=== PATIENT | female | born 1990 ===

== ENCOUNTER 2016-11-12 18:25 | Emergency (ER) | payer OTHER ==
[~2016-11-12] VITALS: Ht 154.9 cm; Wt 50.2 kg
[2016-11-12 18:46] VITALS: TEMP 36.8; Ht 154.9 cm; Wt 50.2 kg
--- NOTE | 2016-11-12 19:20 | EMERGENCY ROOM VISIT NOTE ---
History First contact with patient: 18:50 Chief Complaint: SORETHROAT Stated Complaint: SORE THROAT History of Present Illness The patient is a 26 year old female who presents to the Emergency Room via private vehicle accompanied by female with complaints of "sore throat". The patient states that Friday night, she developed throat pain, and noting that it felt like her throat was swollen. She's been taking NyQuil and DayQuil without relief. There is associated cough, with some mucus production. She denies any sinus drainage or pressure. She denies any antibiotics recently. She denies any fevers, trouble breathing, trouble swallowing, headache, body aches. She denies chance of . Review of Systems A complete 6-point Review of Systems was discussed with the patient, with pertinent positives and negatives listed in the History of Present Illness. All remaining Review of Systems questions can be considered negative unless otherwise specified. Past Medical/Surgical History No pertinent Family History -Blood pressure Social History Smoking Status: Never Smoker Patient lives locally as a [employer] student. Current/Historical Medications Scheduled PRN Uqjxgfuthzeqy-Gjvxoureyp-Qdbjl (Vicks Dayquil/Nyquil Cold), 1 DOSE PO UD PRN for Cold Symptoms Physical Exam Vital Signs Date Time Temp Pulse Resp B/P (MAP) Pulse Ox O2 Delivery O2 Flow Rate FiO2 11/12/16 19:48 86 123/85 97 11/12/16 18:46 36.8 102 18 127/82 100 Room Air 11/12/16 18:46 Room Air Physical Exam VITAL SIGNS - Vital signs and nursing notes were reviewed. Afebrile, blood pressure 127/82, slightly tachycardic at 102 bpm, and is saturating well on room air 100%. GENERAL -26-year-old female appearing her stated age who is in no acute distress. Communicates well with provider and answers questions appropriately. SKIN - Without rashes. HEAD - NC/AT. EYES - PERRL with EOMI bilaterally. Sclera anicteric. EARS - No deformities of external structures noted on gross examination bilaterally. No pain elicited with palpation of the tragus bilaterally. External auditory canals without discharge or otorrhea. Tympanic membranes pearly reid without retraction or bulging. No fluid or purulent material visualized behind the TM. Handle of malleus, umbo, cone of light, pars tensa/ flaccid all easily visualized. NOSE - Midline and without cyanosis. No epistaxis or purulent drainage noted. Septum midline without deviation or septal hematoma noted. MOUTH/OROPHARYNX - Without perioral cyanosis. Buccal mucosa pink and moist and without leukoplakia. Tongue midline with equal elevation of palate bilaterally. No tonsillar hypertrophy, erythema, or exudates noted. Fair dentition noted. NECK - Neck with FROM. Supple to palpation. No lymphadenopathy noted. No nuchal rigidity. LUNGS - Chest wall symmetric without accessory muscle use, intercostals retractions, or central cyanosis. Normal vesicular breath sounds CTA B/L. No wheezes, rales, or rhonchi appreciated. CARDIAC - RRR with S1/S2. No murmur, rubs, or gallops appreciated. NEUROLOGIC - Cranial nerves II through XII grossly intact. Sensory intact to light touch throughout. PSYCH - A&O, and cooperates fully with examiner. Pt is very pleasant and interacts well with examiner. Medical Decision & Procedures Medical Decision Patient was seen and evaluated as above. She professed was today with a sore throat. She is nontoxic upon examination. She's been trying wgoz-uyr-[id number] medications without relief. Rapid strep was obtained, and found to be negative. Backup culture was sent to the lab. She'll be notified if this is negative. I suspect she likely experiencing viral pharyngitis. Because of the associated cough, but no evidence of pneumonia on examination I will initiate a bronchodilator such as an albuterol inhaler. She was given this here, as well as an AeroChamber. She is to use this as needed. She is to follow[facility] with [facility]. She was educated upon management. She was educated upon worrisome symptoms in which to return, had questions answered prior to discharge, and was discharged home in good condition. In evaluation treatment this patient following differential diagnoses were entertained: Viral pharyngitis, streptococcal pharyngitis, peritonsillar abscess , tonsillitis, mono, among others. Impression Primary Impression: Sore throat Departure Information Dispostion Home / Self-Care Condition GOOD Referrals No Doctor, Assigned (PCP) Patient Instructions My [facility] Additional Instructions You were seen in the emergency department for your sore throat. The results of your rapid strep screen were found to be negative. You will be contacted in 48- 72 hrs if the results of your culture are found to be positive and any change in antibiotics is necessary. For pain and fever control, you can use the following wvda-klk-fccwzyl medicines (if >12 yo): - Regular strength (325mg/tab) Tylenol (acetaminophen) 2 tabs every 4-6 hours as needed. Do not exceed 12 tablets in a 24 hour period. Avoid taking more than 3 grams (3000 mg) of Tylenol per day. This includes any other sources of acetaminophen you may take on a regular basis. - Regular strength (200 mg/tab) Advil (ibuprofen) 1-2 tabs every 4-6 hours as needed. Do not exceed a dose of 3200 mg per day. - For best results, alternate dosing of Tylenol and Advil. In addition to your prescribed medications, you can also use the following home remedies: - Warm salt-water gargles 3 times per day can soothe your throat and help to fight infection. - Warm tea with honey can soothe your throat. Return to the emergency department if your symptoms persist or worsen over the next 2-3 days despite treatment course outlined above. Return to the emergency department if you develop the following symptoms of: inability to swallow solids , liquids, or drool; excessive wheezing or inability to catch your breath; or intractable fever or pain. Follow up with your primary care provider in 2-3 days from today's emergency department visit. Please return to the emergency department with any new/concerning symptoms.
[2016-11-12] MEDS ORDERED: ALBUTEROL HFA 8 GM INHALER INH STA (19:22)
[2016-11-12] MEDS ORDERED: PHEN1MIS16 PO (19:28)
[2016-11-12 19:48] VITALS: BP 123/85; PULSE 86; O2SAT 97
== END 2016-11-12 19:40 | disposition home or self-care (01) ==
LOC: C.EDB 18:29 → C.EDD 19:40
DX: J02.9 Acute pharyngitis, unspecified (principal)